=== PATIENT | male | born 1980 | race African-American/Black ===

== ENCOUNTER 2017-04-16 13:11 | Emergency (ER) | payer BC ==
[~2017-04-16] VITALS: Ht 172.7 cm; Wt 68.0 kg
[~2017-04-16 13:11] MED LIST: BENADRYL PO; CIPRO PO; ELIMITE60 GM TOP; FLOMAX0.4 MG PO; GENTAK3.5 G1 OD; PHENERGAN SUPP25 MG PR; PHENERGAN25 M1 PO; SILVADENE TOP; TYLOX 5/500 CAP1 CAP PO; VICODIN 5/1 TAB 5/50 PO; ZANTAC PO; ZOFRAN PO
[2017-04-16 13:34] LABS: URINE SOURCE CLEAN CATCH
[2017-04-16 13:49] LABS: URINE APPEARANCE CLEAR; URINE BILIRUBIN NEG (NEG); URINE BLOOD NEG (NEG); URINE COLOR YELLOW; URINE GLUCOSE NEG (NEG); URINE KETONE TRACE (NEG); URINE LEUKOCYTE ESTERASE NEG (NEG); URINE NITRATE NEG (NEG); URINE PH 6.5 (5-8); URINE PROTEIN NEG (NEG); URINE SPECIFIC GRAVITY 1.034 (1.003-1.035)
[2017-04-16 13:55] LABS: CULTURE INDICATED? NO
[2017-04-20 22:34] LABS: CHLAMYDIA TRACH Not Detected (Not Detected); N GONOR Not Detected (Not Detected)
== END 2017-04-16 14:12 | disposition home or self-care (01) ==
LOC: CED 13:11 → CFTX 13:11
DX: J34.0 Abscess, furuncle and carbuncle of nose (principal); S30.812A Abrasion of penis, initial encounter; F17.200 Nicotine dependence, unspecified, uncomplicated; X58.XXXA Exposure to other specified factors, initial encounter
CPT/HCPCS: 81003; 87253; 87491; 87591; 99283